=== PATIENT | male | born 1985 | race Native Hawaiian/Other Pacific Islander ===

== ENCOUNTER 2017-12-10 11:01 | Emergency (ER) | payer OTHER ==
[2017-12-10] MEDS ORDERED: ACETAMINOPHEN 325 MG TABLET PO STA (11:53)
--- NOTE | 2017-12-10 12:24 | ED Physician Documentation ---
PD HPI URI - Stated complaint Stated Complaint: CHEST DISCOMFORT - Chief complaint Chief Complaint: Heent - History obtained from History obtained from: Patient - History of Present Illness Timing - onset: How many days ago (3) Timing duration: Days (3) Timing details: Abrupt onset, Still present Associated symptoms: Fever, Chills, Sweats, Nasal congestion, Rhinorrhea, Productive cough, Dyspnea Contributing factors: Sick contact Improves by: Rest Worsened by: Activity Similar symptoms before: Has not had sx before Recently seen: Not recently seen - Additional information Additional information: Previously healthy 32-year-old male developed acute cough congestion and fever about 3 days ago. Review of Systems Constitutional: reports: Fever, Chills, Myalgias, Fatigue, Sweats Eyes: denies: Decreased vision Ears: denies: Ear pain Nose: reports: Rhinorrhea / runny nose, Congestion Throat: denies: Sore throat Cardiac: denies: Chest pain / pressure, Palpitations Respiratory: reports: Dyspnea, Cough GI: denies: Abdominal Pain, Nausea, Vomiting : denies: Dysuria PD PAST MEDICAL HISTORY - Past Medical History Past Medical History: Yes Cardiovascular: Hypertension, High cholesterol Psych: Depression, ADD/ADHD - Past Surgical History Past Surgical History: Yes Ortho: Carpal Tunnel surgery - Present Medications Home Medications: Ambulatory Orders Medication Instructions Recorded Confirmed Dextroamphetamine/Amphetamine 02/23/14 02/23/14 [Adderall 10 mg Tablet] Escitalopram Oxalate [Lexapro] 15 mg PO 02/23/14 02/23/14 Azithromycin [Zithromax] 250 mg PO DAILY #6 tablet 12/10/17 - Allergies Allergies/Adverse Reactions: Allergies Allergy/AdvReac Type Severity Reaction Status Date / Time No Known Drug Allergies Allergy Verified 12/10/17 11:07 - Social History Does the pt smoke?: No Smoking Status: Never smoker Does the pt drink ETOH?: No Does the pt have substance abuse?: No - Immunizations Immunizations are current?: Yes PD ED PE NORMAL - Vitals Vital signs reviewed: Yes (Febrile and hypertensive) - General General: No acute distress, Well developed/nourished - HEENT HEENT: Atraumatic, PERRL, EOMI, Other (both TM's are erythematous with indistinct landmarks. ) - Neck Neck: Supple, no meningeal sign, No bony TTP - Cardiac Cardiac: RRR, No murmur - Respiratory Respiratory: No respiratory distress, Other (bibasilar rhonchi and apple to the left mid lung field. ) - Abdomen Abdomen: Soft, Non tender - Back Back: No CVA TTP, No spinal TTP - Derm Derm: Normal color, Warm and dry, No rash - Extremities Extremities: No deformity, No edema - Neuro Neuro: No motor deficit, No sensory deficit Eye Opening: Spontaneous Motor: Obeys Commands Verbal: Oriented GCS Score: 15 - Psych Psych: Normal mood, Normal affect Results - Vitals Vitals: Vital Signs - 24 hr 12/10/17 12/10/17 12/10/17 11:05 11:45 12:22 Temperature 38.9 C H 38.9 C H 39.2 C H Heart Rate 100 98 Respiratory 18 21 Rate Blood Pressure 148/98 H 137/70 H O2 Saturation 96 96 12/10/17 13:55 Temperature 37.6 C H Heart Rate 97 Respiratory 18 Rate Blood Pressure 131/78 H O2 Saturation 96 Oxygen O2 Source Room air - Rads (name of study) 2 view chest Radiology: Prelim report reviewed (Impression: Patchy left basal opacity suspicious for pneumonia. Minimal right basilar opacity, atelectasis versus infiltrate.), EMP read indepedently, See rad report PD MEDICAL DECISION MAKING - ED course Complexity details: reviewed results, re-evaluated patient, considered differential, d/w patient ED course: 32-year-old male has a cough and congestion he does not have fever and feels ill. On examination he has rhonchi bibasilar and on chest x-ray infiltrate as well. He has otitis on examination as well. He is administered dexamethasone 10 mg orally and IM Rocephin. We will place him on some azithromycin. Departure - Departure Disposition: 01 Home, Self Care Clinical Impression: Otitis media Qualifiers: Otitis media type: suppurative Chronicity: acute Laterality: bilateral Recurrence: not specified as recurrent Spontaneous tympanic membrane rupture: without spontaneous rupture Qualified Code(s): H66.003 - Acute suppurative otitis media without spontaneous rupture of ear drum, bilateral Pneumonia Qualifiers: Pneumonia type: due to unspecified organism Laterality: bilateral Lung location : lower lobe of lung Qualified Code(s): J18.1 - Lobar pneumonia, unspecified organism Condition: Stable Instructions: ED Otitis Media Acute Adult, ED Pneumonia Adult Follow-Up: Mary Jane Flores MD [Primary Care Provider] - Prescriptions: Azithromycin [Zithromax] 250 mg PO DAILY #6 tablet Forms: Activity restrictions Discharge Date/Time: 12/10/17 13:55
[2017-12-10] MEDS ORDERED: DEXAMETHASONE 10 MG/ML VIAL PO STA (12:28)
[2017-12-10] MEDS ORDERED: CHERRY SYRUP 10 ML UDC PO ONE (12:42)
--- NOTE | 2017-12-10 12:57 | XRAY Preliminary Report ---
Exam: XR CHEST 2 VIEW X-RAY IMPRESSION: Patchy left basal opacity suspicious for pneumonia. Minimal right basal opacity, atelecta sis versus infiltrate. [facility] SITE ID: [id number]
--- NOTE | 2017-12-10 12:57 | XRAY Report ---
EXAM: CHEST RADIOGRAPHY EXAM DATE: 12/10/2017 12:40 PM. CLINICAL HISTORY: Fever, cough. COMPARISON: None. TECHNIQUE: 2 views. FINDINGS: Lungs/Pleura: Lung volumes are somewhat low. Patchy left basal opacity suspicious for pneumonia. Mini mal right basal opacity, atelectasis versus infiltrate. No significant pleural effusion or evidence o f pneumothorax. Mediastinum: Heart and mediastinal contours are unremarkable. Other: None. IMPRESSION: Patchy left basal opacity suspicious for pneumonia. Minimal right basal opacity, atelecta sis versus infiltrate. [facility] Referring Provider Line: [phone] SITE ID: [id number]
[2017-12-10] MEDS ORDERED: LIDOCAINE 1% 2 ML VIAL SUBQ ONE (13:01)
[2017-12-10] MEDS ORDERED: cefTRIAXone 1 GM VIAL IM STA (13:01)
[2017-12-10 13:57] VITALS: BP 131/78
== END 2017-12-10 13:55 | disposition home or self-care (01) ==
LOC: ED 11:01
DX: I10 Essential (primary) hypertension (principal); E78.00 Pure hypercholesterolemia, unspecified; J18.9 Pneumonia, unspecified organism; H66.003 Acute suppurative otitis media without spontaneous rupture of ear drum, bilateral
CPT/HCPCS: 71046; 96372; 99283; A9270